=== PATIENT | male | born 1970 | race Caucasian/White ===

== ENCOUNTER → 2020-10-04 | Outpatient (CLI) | payer BC, OTHER ==
[2020-10-04 15:50] LABS: HEMOGLOBIN 13.2 gm/dl (14.0-17.5); RED BLOOD COUNT 4.24 M/UL (4.20-5.50); WHITE BLOOD COUNT 7.5 K/UL (4.5-11.0)
[2020-10-04 16:09] LABS: BUN/CREATININE RATIO 23 (0-10)
== END ==
LOC: LAB 15:31
PROVIDERS: Preventive Medicine Addiction Medicine
DX: R10.9 Unspecified abdominal pain (principal)
CPT/HCPCS: 36415; 80053; 85025

== ENCOUNTER → 2021-05-23 | Outpatient (CLI) | payer BC | LOC: KOH-I 16:28 | DX: R10.84 Generalized abdominal pain (principal); N20.0 Calculus of kidney; R91.1 Solitary pulmonary nodule; K44.9 Diaphragmatic hernia without obstruction or gangrene; N28.1 Cyst of kidney, acquired | CPT/HCPCS: 74176 ==